=== PATIENT | male | born 1995 | race Caucasian/White ===

== ENCOUNTER 2020-10-31 18:14 | Emergency (ER) | payer OTHER ==
[~2020-10-31] VITALS: Ht 175.3 cm; Wt 119.3 kg
[~2020-10-31 18:14] MED LIST: CONCERTA36 M1 PO; ZYRTEC10 MG PO
[2020-10-31] MEDS ORDERED: ALLEGRA ALLERGY60 MG PO (19:24)
[2020-10-31 19:42] VITALS: BP 141/98
== END 2020-10-31 19:44 | disposition home or self-care (01) ==
LOC: M.ERS 18:14
DX: T16.1XXA Foreign body in right ear, initial encounter (principal); F12.90 Cannabis use, unspecified, uncomplicated; Z79.899 Other long term (current) drug therapy; X58.XXXA Exposure to other specified factors, initial encounter; Y93.89 Activity, other specified; Y92.89 Other specified places as the place of occurrence of the external cause; Y99.9 Unspecified external cause status